=== PATIENT | male | born 1980 | race African-American/Black ===

== ENCOUNTER 2019-05-07 14:21 | Inpatient (IN) | payer OTHER ==
[~2019-05-07] VITALS: Ht 167.6 cm; Wt 69.8 kg
[2019-05-07 14:44] VITALS: BP 136/85
[2019-05-07] MEDS ORDERED: EXCEDRIN MIGRA1 EAC1 PO (14:48)
[2019-05-07 15:21] LABS: HEMATOCRIT 47.7 % (42.0-52.0); HEMOGLOBIN 15.3 gm/dL (14.0-18.0); MCH 27.4 pg (26.0-34.0); MCHC 32.1 g/dL (28.0-37.0); MCV 85.5 fL (80.0-100.0); PLATELET COUNT 222 thou/uL (150-400); RBC 5.59 mil/uL (4.50-6.00); WBC 11.6 thou/uL (4.0-11.0)
[2019-05-07 15:24] LABS: URINE BILIRUBIN NEGATIVE (Negative); URINE BLOOD TRACE (Negative); URINE CLARITY CLEAR; URINE COLOR YELLOW; URINE GLUCOSE-RANDOM* NEGATIVE (Negative); URINE KETONES NEGATIVE (Negative); URINE LEUKOCYTES-REFLEX NEGATIVE (Negative); URINE NITRITE-REFLEX NEGATIVE (Negative); URINE PROTEIN (DIPSTICK) 1+ (Negative); URINE SPECIFIC GRAVITY >= 1.030 (1.005-1.035); URINE UROBILINOGEN 0.2 E.U./dl (0.2-1.0)
[2019-05-07 15:24] LABS: CALCIUM 10.4 mg/dL (8.5-10.1); CREATININE 1.4 mg/dL (0.7-1.3); POTASSIUM 3.7 mmol/L (3.5-5.1)
[2019-05-07 15:30] LABS: ALBUMIN 4.1 g/dL (3.4-5.0); TOTAL BILIRUBIN 0.7 mg/dL (<0.1-1.0)
[2019-05-07 15:33] LABS: BACTERIA-REFLEX 1-9 Few /HPF (None Seen); CASTS None Seen /LPF (None Seen); CRYSTALS None Seen /LPF (None Seen); SQUAMOUS None Seen /LPF (0-3); URINE RBC 0-2 Rare /HPF (0-2)
[2019-05-07 15:34] LABS: URINE WBC-REFLEX None Seen /HPF (0-5)
[2019-05-07 16:20] LABS: ANISOCYTOSIS SLIGHT
[2019-05-07 16:41] VITALS: BP 133/80
[2019-05-07 19:43] VITALS: BP 120/80
--- NOTE | 2019-05-07 23:13 | NUR ---
PT TO UNIT AROUND 1999. EDUCATED ON USE OF CALL LIGHT. ADMISSION ASSESSMNET COMPLETED. DESCRIBES A DISCOMFORT IN THE LOWER ABDOMEN. DENIES NAUSEA. NPO AT MIDNIGHT. PT IS UP AT [facility]. SURGERY TOMORROW PERFORMED BY DR LOUISE FRIEDMAN.
[2019-05-08 03:31] VITALS: BP 124/76
--- NOTE | 2019-05-08 09:30 | NUR ---
REPORT GIVEN TO PRE OP. PT WAS A&OX4, IV INTACT L AC JAYDEN LOCKED. CONSENT WAS COPIED AND SENT WITH CHART. PT DID NOT HAVE FAMILY MEMBER WITH HIM AT THE TIME. PLANS ARE FOR PT TO RETURN AFTER SURGERY.
[2019-05-08 11:22] VITALS: BP 122/77
--- NOTE | 2019-05-08 11:44 | NUR ---
PT RETURNED FROM PACU. A&OX4, VSS, IV FLUIDS RESTARTED. PT IS DROWSEY THOUGH REQUESTED MED FOR PAIN 09/29. MORPHINE 4MG IV GIVEN ORDERED. WILL CONT POC.
[2019-05-08 16:00] VITALS: BP 125/83
[2019-05-08 19:28] VITALS: BP 125/83; BP 134/91
--- NOTE | 2019-05-09 02:17 | NUR ---
ASSUMED CARE OF PT @1900 PT ASSESSED AT START OF SHIFT A&OX4 AND IV INTACT AND INFUSING. 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 SCHEDULED TYELNOL GIVEN. LOW GRADE TEMP IMOPROVED FOROM 100 TO 97.5. CALL LIGHT IN PLACE AND WILL CONT WITH POC TILL EOS.
[2019-05-09 02:45] VITALS: BP 107/66
[2019-05-09 05:12] LABS: HEMATOCRIT 36.3 % (42.0-52.0); MCH 27.5 pg (26.0-34.0); MCV 86.2 fL (80.0-100.0); RBC 4.21 mil/uL (4.50-6.00); RDW 13.3 % (10.5-14.5); WBC 11.6 thou/uL (4.0-11.0)
[2019-05-09 05:21] LABS: HEMOGLOBIN 11.6 gm/dL (14.0-18.0)
[2019-05-09 05:28] LABS: ALBUMIN 2.6 g/dL (3.4-5.0); CREATININE 1.3 mg/dL (0.7-1.3); PHOSPHORUS 3.2 mg/dL (2.5-4.9); POTASSIUM 3.7 mmol/L (3.5-5.1)
[2019-05-09 05:41] LABS: CALCIUM 8.3 mg/dL (8.5-10.1)
[2019-05-09 08:20] VITALS: BP 111/71
[2019-05-09] MEDS ORDERED: ACETAMINOPHEN325 M1 PO (08:35)
[2019-05-09] MEDS ORDERED: MIRALAX17 GM PO (08:36)
[2019-05-09] MEDS ORDERED: COLACE 100 MG100 MG PO (08:36)
[2019-05-09] MEDS ORDERED: OXYCODONE HCL 55 MG PO (08:40)
[2019-05-09 09:37] VITALS: BP 111/71
--- NOTE | 2019-05-09 09:51 | NUR ---
PT CARE ASSUMED AT 0700. A&Ox4. PT IS INDEPENDENT IN ROOM AND WALKING THE HALLWAY. PT. ABDOMEN TENDER AT SURGERY SITE. IV DISCHARGED. PT DISCHARGED TO HOME WITH FAMILY MEMBER AND ONE SCRIPT. BED LOCKED IN LOW POSITION WITH CALL LIGHT IN REACH.
--- NOTE | 2019-05-09 16:06 | PATH ---
[facility] [address] [place] [address] PATHOLOGY RPT PROCEDURE Name: BRENT LUONG Room #: 437-P [facility] IN M.R.#: [id number] Admission: 05/07/19 Date of : 78 Discharge: 05/09/19 Report #: [id number] Path Case #: [id number] [facility] Accession Number: [id number] . 01 Material submitted: . appendix - APPENDIX . 01 Clinical history: . Acute appendicitis . 02 Diagnosis: Appendix, appendectomy: - Marked acute appendicitis with marked serositis. - Proximal margin showing unremarkable appendix. . (IUV:mml; 05/09/2019) QLM 05/09/2019 1531 Local . 02 Electronically signed: . Chanel Kovacs MD, Pathologist NPI- [id number] . 01 Gross description: . . The specimen is received in formalin, labeled "Brent Luong Jr, appendix" and consists of an appendix measuring 8.5 in length and up to 1.1 in diameter with mesoappendix measuring 1.7 thick. The serosa is pink-connelly, hemorrhagic with fibrous adhesions and a possible perforation/defect (inked orange). The margin is closed with a line of hali and inked black. Sectioning reveals a dilated to pinpoint hemorrhagic lumen. At the site of the possible perforation, the lumen and mesoappendix are markedly hemorrhagic. Flooring Helper sections are submitted in A1-A3. (SDY; 05/08/2019) SYU/SYU 05/08/2019 1620 Local . 02 Pathologist provided ICD-10: K35.80, K65.8 . 02 CPT . 185886 Specimen Comment: A courtesy copy of this report has been sent to [phone] Specimen Comment: Report sent to and Performed at: [address] [id number] MD Ron Otoole MD Phone: [phone] Performed at: 02 [place] [address] PATHOLOGY RPT PROCEDURE Name: BRENT LUONG JR Room #: 437-P [facility] IN M.R.#: [id number] Admission: 05/07/19 Date of : 78 Discharge: 05/09/19 Report #: [id number] Path Case #: [id number] [facility] [address], [place], [place] [id number] MD Chanel Kovacs MD Phone: [phone]
== END 2019-05-09 14:25 | disposition home or self-care (01) | DRG 343 ==
LOC: ER 14:21 → 4S 17:02 → EROBS 17:02 → 4S 19:25
PROVIDERS: Physician Assistant; Surgery; ADMIT Surgery
PROC: 0DTJ4ZZ Resection of Appendix, Percutaneous Endoscopic Approach (ICD-10-PCS; principal; 2019-05-08)
DX: K35.80 Unspecified acute appendicitis (principal); G43.909 Migraine, unspecified, not intractable, without status migrainosus; Z79.899 Other long term (current) drug therapy; Z88.6 Allergy status to analgesic agent
CPT/HCPCS: 10195; 50010; 50101; 50249; 50411; 50555; 50558; 50739; 50740; 51489; 52265; 53307; 53310; 53312; 54022; 54118; 56462; 56525; 56526; 62110; 62900; 70005